=== PATIENT | female | born 1965 | race Caucasian/White ===

== ENCOUNTER 2019-02-15 07:15 | Day surgery (SDC) | payer BC ==
[~2019-02-15 07:15] MED LIST: Lactated Ringers 1,000 ML IV SCH
--- NOTE | 2019-02-15 08:25 | PCM.PREANE ---
Preanesthetic Assessment - Anesthesia/Transfusion/Family Hx Anesthesia History: Prior Anesthesia Without Reaction Family History of Anesthesia Reaction: No Transfusion History: No Prior Transfusion(s) - Review of Systems General: No Symptoms Pulmonary: No Symptoms Cardiovascular: No Symptoms Gastrointestinal: No Symptoms Neurological: No Symptoms Other: Reports: None - Physical Assessment NPO Status Date: 02/14/19 O2 Sat by Pulse Oximetry: 96 Respiratory Rate: 16 Vital Signs: Last Vital Signs Temp 96.4 F 02/15/19 08:21 Pulse 73 02/15/19 08:21 Resp 16 02/15/19 08:21 BP 100/72 02/15/19 08:21 Pulse Ox 96 02/15/19 08:21 Height: 5 ft 5 in Weight: 83.007 kg ASA Class: 2 Mental Status: Alert & Oriented x3 Airway Class: Mallampati = 2 Dentition: Reports: Partial ROM/Head Extension: Full Lungs: Clear to Auscultation, Normal Respiratory Effort Cardiovascular: Regular Rate, Regular Rhythm - Allergies Allergies/Adverse Reactions: Allergies Allergy/AdvReac Type Severity Reaction Status Date / Time chocolate flavor Allergy Rash Verified 02/10/19 11:16 egg Allergy Rash Verified 02/10/19 11:16 peanut Allergy Rash Verified 02/10/19 11:16 shellfish derived Allergy Rash Verified 02/10/19 11:16 - Anesthesia Plan Pre-Op Medication Ordered: None - Acknowledgements Anesthesia Type Planned: General Anesthesia Pt an Appropriate Candidate for the Planned Anesthesia: Yes Alternatives and Risks of Anesthesia Discussed w Pt/Guardian: Yes Pt/Guardian Understands and Agrees with Anesthesia Plan: Yes Additional Comments: anes prob list: COPD, on no chronic meds, no GRIFFIN, no suplimental O2, uses provenyl inhaler prn- last use 2 mo ago, s/p cerv fusion but neck mobility is OK PLAN: tiva PreAnesthesia Questionnaire HEENT History: Reports: Macular Degeneration, Other (See Below) Other HEENT History: wears glasses, has upper removable partial denture, was told she had Macular degeneration but has not gone back for recheck Cardiovascular History: Reports: Hypertension Respiratory History: Reports: COPD Gastrointestinal History: Reports: Chronic Constipation, Chronic Diarrhea, Irritable Bowel Syndrome, [employer]PERATOR [employer]ATIC History: Reports: Musculoskeletal History: Reports: Fracture Other Musculoskeletal History: hx of fx toes Neurological History: Reports: Concussion, Headaches, Chronic, Migraines Psychiatric History: Reports: Anxiety, Depression, PTSD Dermatologic History: Reports: Eczema - Past Surgical History Head Surgeries/Procedures: Reports: None GI Surgical History: Reports: Appendectomy, Colonoscopy, EGD Female Surgical History: Reports: Hysterectomy Musculoskeletal Surgical History: Reports: Carpal Tunnel - SUBSTANCE USE Smoking Status *Q: Current Every Day Smoker Tobacco Use Within Last Twelve Months: Cigarettes Recreational Drug Use History: No - HOME MEDS Home Medications: Home Meds Albuterol [Proventil HFA] 1 puff INH ASDIRECTED PRN 02/10/19 [History] Benazepril [Lotensin] 10 mg PO QAM 02/10/19 [History] Chlorthalidone 25 mg PO QAM 02/10/19 [History] Gabapentin [Neurontin] 300 mg PO TID 02/10/19 [History] Multivitamin [Daily Multiple Vitamin] 1 tab PO DAILY 02/10/19 [History] Propranolol [Inderal] 40 mg PO QAM 02/10/19 [History] - CURRENT (IN HOUSE) MEDS Current Meds: Current Medications Lactated Ringer's (Ringers, Lactated) 1,000 mls @ 125 mls/hr IV ASDIRECTED FLOR Last Admin: 02/15/19 08:19 Dose: 125 mls/hr
[2019-02-15] MEDS ORDERED: Lidocaine 2% 5 ML SDV ONE (09:35)
[2019-02-15] MEDS ORDERED: Propofol 200 MG/20 ML SDV ONE ×2 (09:35→10:13)
[2019-02-15] MEDS ORDERED: fentaNYL 100 MCG/2 ML SDV ONE (09:36)
--- NOTE | 2019-02-15 10:33 | PCM.OPNOTE ---
- General Post-Op/Procedure Note Date of Surgery/Procedure: 02/15/19 Operative Procedure(s): egd w bx. colonoscopy w bx Findings: see [id number] Pre Op Diagnosis: BRBPR and abd pain Post-Op Diagnosis: Same Anesthesia Technique: Moderate Sedation Primary Surgeon: Sherif Hawkins Pathology: egd bx attempted ti bx and random colon bx Complications: None Condition: Good
--- NOTE | 2019-02-15 10:51 | PCM.POSTAN ---
POST ANESTHESIA ASSESSMENT - MENTAL STATUS Mental Status: Alert, Oriented - VITAL SIGNS Pulse Rate: 76 SaO2: 96 (RA) Resp Rate: 14 Blood Pressure: 129/86 - RESPIRATORY Respiratory Status: Respiratory Rate WNL, Airway Patent, O2 Saturation Stable - CARDIOVASCULAR CV Status: Pulse Rate WNL, Blood Pressure Stable - GASTROINTESTINAL GI Status: No Symptoms - PAIN Pain Score: 0 - POST OP HYDRATION Hydration Status: Adequate & Stable
--- NOTE | 2019-02-15 11:03 | OR ---
SURGEON: Sherif Hawkins MD DATE OF PROCEDURE: 02/15/2019 PREOPERATIVE DIAGNOSES: Bright red blood per rectum and abdominal pain. POSTOPERATIVE DIAGNOSES: Esophagogastroduodenoscopy diagnosis is gastritis, colonoscopy diagnosis is polyp. PROCEDURES PERFORMED: Esophagogastroduodenoscopy with biopsy, colonoscopy with biopsy. DESCRIPTION OF PROCEDURE: EGD: The patient was taken to the endoscopy room, and with the LABOR UTILIZATION SUPERINTENDENT, Diprivan was administered. A well-lubricated EGD scope was gently inserted through the oropharynx, down the esophagus, passing through the gastroesophageal junction, into the stomach. The mucosa was examined upon the passage. Any etiology will be noted. Once in the stomach, we continued to advance to the distal antrum, passed through the pylorus into the second portion of the duodenum. Again, the mucosa was examined for any abnormality and etiology. The scope was then retrieved back to the stomach and then retroflexed to look at the fundus of the stomach. If a biopsy was indicated, we will biopsy the antrum, body, and gastroesophageal junction. The air will be sucked out while the scope is retrieved to reduce the patient's discomfort. The patient tolerated the procedure well. There were no intraoperative complications. Dr. Hawkins was present through the whole procedure. Prior to surgery, a time-out had been called, the patient identified, procedure identified and antibiotic administered. The patient was taken to the endoscopy room. A time out was called, patient identified, and procedure identified. Diprivan was then administrated. Patient went from awake to sleep, hearing doctor talking or door closing is normal. Perineum inspection and digital examination were then performed. A well- lubricated colonoscope was gently inserted through the rectum, advanced past the rectosigmoid junction, the descending colon, splenic flexure, transverse colon, hepatic flexure, ascending colon, arrived to the cecum. Cecum was identified as dictated in the finding. Then the scope was carefully withdrawn while attention was paid to the mucosal surface for any abnormality. Air will be sucked out during the scope withdrawal. At the rectum, retroflexed to examine any rectal diseases, fistula or hemorrhoids. During mucosal examination, abnormality or polyp was noted; picture taken and biopsy performed. Patient tolerated procedure well. There were no intraoperative complications, and Dr. Hawkins was present throughout the whole procedure. FINDINGS: EGD findings: 1. The patient is easily sedated with LABOR UTILIZATION SUPERINTENDENT and Diprivan, the patient is soundly snoring. 2. Oropharynx and proximal esophagus are free of disease, stricture, or inflammation. Distal esophagus at GE junction at 40 shows flame-like salmon-colored change consistent with significant acid reflux. Stomach rugae are normal in appearance. Antrum is moderately inflamed and with a place like a doughnut, possible healed ulcer. Duodenum is grossly normal in appearance. Scope retrieved back to the duodenum. Retroflexed to look at the fundus of the stomach, there is no hiatal hernia. Biopsy done at antrum where the inflammation and the doughnut are and body and GE junction at 40 and sucked out the gas while scope pulling out. Colonoscopy findings: 1. The patient is easily sedated with LABOR UTILIZATION SUPERINTENDENT and Diprivan, the patient is soundly snoring. 2. Bowel prep is left to be desirable, quite a lot of vegetable and liquid stool. No stool ball or semi-formed stool. Mucosa examined upon scope pulling out with constant irrigation because of the bowel prep, so this is a compromised study. The patient has a small tiny polyp, 2 mm, maybe not even a polyp, at distance 25 as scope pulling out, removed with biopsy forceps. The patient does not have diverticulosis, inflammation, stricture, ulceration, AV malformation, bleeding, none of those. The patient has mild internal hemorrhoid, no external hemorrhoid. The patient would benefit from repeat colonoscopy in 10 years from today or if clinically her biopsy loan workout officer different. SHARA / TISHA /[id number]
--- NOTE | 2019-02-15 11:09 | PCM48HPAN ---
Post Anesthesia Note - EVALUATION WITHIN 48HRS OF ANESTHETIC Vital Signs in Normal Range: Yes Patient Participated in Evaluation: Yes Respiratory Function Stable: Yes Airway Patent: Yes Cardiovascular Function Stable: Yes Hydration Status Stable: Yes Pain Control Satisfactory: Yes Nausea and Vomiting Control Satisfactory: Yes Mental Status Recovered: Yes Pulse Rate: 76 Resp Rate: 14 Blood Pressure: 129/86
== END 2019-02-15 11:30 | disposition home or self-care (01) ==
LOC: MW.SDS 07:15
PROVIDERS: ATTEND Surgery
DX: K63.5 Polyp of colon (principal); K64.8 Other hemorrhoids; K29.50 Unspecified chronic gastritis without bleeding; K20.9 Esophagitis, unspecified; K62.5 Hemorrhage of anus and rectum; I10 Essential (primary) hypertension; J44.9 Chronic obstructive pulmonary disease, unspecified; F17.210 Nicotine dependence, cigarettes, uncomplicated; Z91.018 Allergy to other foods; Z91.012 Allergy to eggs; Z91.010 Allergy to peanuts; Z91.013 Allergy to seafood; Z91.02 Food additives allergy status; Z79.899 Other long term (current) drug therapy
CPT/HCPCS: J2001; J2704; J3010; J7120

== ENCOUNTER 2021-08-11 20:22 | Emergency (ER) | payer BC, OTHER ==
[2021-08-11] MEDS ORDERED: Labetalol 100 MG/20 ML MDV IVPUSH ONE ×2 (21:23→22:54)
[2021-08-11] MEDS ORDERED: Acetaminophen/HYDROcodone 325-5 MG Tab PO ONE (21:24)
[2021-08-11 22:29] LABS: BLOOD UREA NITROGEN,BUN 13 mg/dL (7.0-18.0); CARBON DIOXIDE,CO2 27.8 mmol/L (21.0-32.0); CHLORIDE,CL 101 mmol/L (98-107); GLUCOSE RANDOM 152 mg/dL (74-106); LIPASE 52 U/L (73-393); POTASSIUM,K 3.5 mmol/L (3.5-5.1); SODIUM,NA 137 mmol/L (136-145)
[2021-08-11] MEDS ORDERED: Iopamidol 755 MG/ML 500 ML Multipack Bottle IVPUSH ONE (22:42)
[2021-08-11] MEDS ORDERED: Ketorolac 30 MG/ML SDV IVPUSH ONE (22:54)
[2021-08-11] MEDS: Acetaminophen/HYDROcodone 325-5 MG Tab PO ONE ×2 (23:26→23:33)
== END 2021-08-12 00:32 | disposition home or self-care (01) ==
LOC: MW.ED 20:22
DX: I77.6 Arteritis, unspecified (principal); I10 Essential (primary) hypertension; J44.9 Chronic obstructive pulmonary disease, unspecified; Z91.018 Allergy to other foods; Z91.012 Allergy to eggs; Z91.010 Allergy to peanuts; Z91.013 Allergy to seafood
CPT/HCPCS: 36415; 70450; 74177; 80053; 80305; 81001; 81025; 83690; 85025; 85652; 86140; 96374; 96376; 99284; A9270; J3490; Q9967

== ENCOUNTER 2021-08-14 19:41 | Emergency (ER) | payer OTHER ==
[2021-08-14] MEDS ORDERED: Sodium Chloride 0.9% 1,000 ML IV ONE (20:04)
[2021-08-14] MEDS ORDERED: Ondansetron 4 MG/2 ML SDV IVPUSH ONE (20:07)
[2021-08-14] MEDS ORDERED: HYDROmorphone 1 MG/ML Syringe IVPUSH ONE (20:07)
[2021-08-14 20:34] LABS: BLOOD UREA NITROGEN,BUN 11 mg/dL (7.0-18.0); CARBON DIOXIDE,CO2 28.7 mmol/L (21.0-32.0); CHLORIDE,CL 101 mmol/L (98-107); GLUCOSE RANDOM 126 mg/dL (74-106); LIPASE 53 U/L (73-393); SODIUM,NA 136 mmol/L (136-145)
[2021-08-14] MEDS ORDERED: Iopamidol 755 MG/ML 500 ML Multipack Bottle IVPUSH STA (21:29)
[2021-08-14] MEDS ORDERED: Hydrocortisone Sodium Succinate 100 MG/2 ML SDV IVPUSH ONE (23:12)
[2021-08-14] MEDS ORDERED: Acetaminophen/oxyCODONE 325-5 MG Tab PO ONE (23:49)
== END 2021-08-15 01:15 | disposition home or self-care (01) ==
LOC: MW.ED 19:41
DX: I77.6 Arteritis, unspecified (principal); J44.9 Chronic obstructive pulmonary disease, unspecified; I10 Essential (primary) hypertension; Z91.012 Allergy to eggs; Z91.010 Allergy to peanuts; Z91.013 Allergy to seafood; Z91.018 Allergy to other foods; Z79.899 Other long term (current) drug therapy
CPT/HCPCS: 36415; 71275; 74174; 80053; 81001; 83690; 84484; 85025; 93005; 96374; 96375; 99285; A9270; J1170; J1720; J2405; J7030; Q9967